=== PATIENT | male | born 1985 | race Caucasian/White ===

== ENCOUNTER 2020-06-04 21:22 | Emergency (ER) | payer MEDICAID ==
[~2020-06-04] VITALS: Ht 177.8 cm; Wt 65.8 kg
[2020-06-04 21:22] VITALS: BP_SYST 142
[2020-06-05] MEDS ORDERED: LIDOCAINE 1%, 20 ML MDV 20 ML ONE (00:35)
[2020-06-05] MEDS ORDERED: BACITRACIN ZINC 15 GM TOPICAL OINTMENT TP ONE (00:45)
[2020-06-05 00:53] VITALS: BP_SYST 128
[2020-06-05] MEDS ORDERED: CEPHALEXIN 500 MG CAPSULE PO ONE (01:00)
== END 2020-06-05 01:19 | disposition home or self-care (01) ==
LOC: SED 21:22
DX: S61.217A Laceration without foreign body of left little finger without damage to nail, initial encounter (principal); W26.8XXA Contact with other sharp object(s), not elsewhere classified, initial encounter; Y93.89 Activity, other specified; Y92.89 Other specified places as the place of occurrence of the external cause; Y99.8 Other external cause status
CPT/HCPCS: 12001; 99283; J2001